=== PATIENT | male | born 1965 ===

== ENCOUNTER 2020-01-30 21:28 | Emergency (ER) | payer OTHER ==
[~2020-01-30] VITALS: Ht 165.1 cm; Wt 73.0 kg
[2020-01-31] MEDS ORDERED: GLIMEPIRIDE1 M1 PO (01:35)
== END 2020-01-31 01:55 | disposition home or self-care (01) ==
LOC: ER 21:28
DX: R51 Headache (principal); E11.65 Type 2 diabetes mellitus with hyperglycemia